=== PATIENT | male | born 1950 ===

== ENCOUNTER → 2018-04-04 | Outpatient (CLI) | payer MEDICARE ==
[~2018-04-04] VITALS: Ht 170.2 cm; Wt 72.0 kg
[~2018-04-04] MED LIST: ASPI81 PO; ATOR40TA28 PO; CARV3 PO; LOSA25TA16 PO
[2018-04-04 10:19] VITALS: BP 158/78
== END | disposition home or self-care (01) ==
LOC: SRCNTR 10:04
PROVIDERS: ATTEND Internal Medicine
DX: D86.2 Sarcoidosis of lung with sarcoidosis of lymph nodes (principal); Z85.6 Personal history of leukemia; Z86.73 Personal history of transient ischemic attack (TIA), and cerebral infarction without residual deficits; Z87.891 Personal history of nicotine dependence
CPT/HCPCS: G0463